=== PATIENT | female | born 1980 | race African-American/Black ===

== ENCOUNTER 2016-12-08 07:56 | Emergency (ER) | payer SELFPAY ==
[~2016-12-08] VITALS: Ht 162.6 cm; Wt 81.6 kg
[2016-12-08 08:07] VITALS: BP 137/89
[2016-12-08] MEDS ORDERED: ACYC800T PO (08:13)
[2016-12-08] MEDS ORDERED: DOCO2CRE TP (08:13)
--- NOTE | 2016-12-08 08:13 | PHYS DOC ---
Adult General Chief Complaint Chief Complaint: OTHER COMPLAINTS HPI HPI Patient is a 36 year old female significant medical history who presents with sores on her right upper lip that began last night. Patient denies any fever. Denies any chance she is . Review of Systems Review of Systems Constitutional: Denies fever or chills [] Eyes: Denies change in visual acuity, redness, or eye pain [] HENT: Denies nasal congestion or sore throat [] Respiratory: Denies cough or shortness of breath [] Cardiovascular: No additional information not addressed in HPI [] Musculoskeletal: Denies back pain or joint pain [] Integument: Sores on the upper lip Neurologic: Denies headache, focal weakness or sensory changes [] Endocrine: Denies polyuria or polydipsia [] Allergies Allergies Allergies Coded Allergies Type Severity Reaction Last Updated Verified fluconazole Allergy Intermediate 12/08/16 Yes Physical Exam Physical Exam Constitutional: Well developed, well nourished, no acute distress, non-toxic appearance. [] HENT: Normocephalic, atraumatic, bilateral external ears normal, oropharynx moist, no oral exudates, nose normal. [] Eyes: PERRLA, EOMI, conjunctiva normal, no discharge. [] Neck: Normal range of motion, no tenderness, supple, no stridor. [] Cardiovascular:Heart rate regular rhythm, no murmur [] Lungs & Thorax: Bilateral breath sounds clear to auscultation [] Skin: Patient has a grouped cluster of fluid filled vesicles on the right upper lip consistent with herpes labialis. Back: No tenderness, no CVA tenderness. [] Extremities: No tenderness, no cyanosis, no clubbing, ROM intact, no edema. [] Neurologic: Alert and oriented X 3, normal motor function, normal sensory function, no focal deficits noted. [] Psychologic: Affect normal, judgement normal, mood normal. [] Current Patient Data Vital Signs Vital Signs Date Time Temp Pulse Resp B/P (MAP) Pulse Ox O2 Delivery O2 Flow Rate FiO2 12/08/16 08:07 98.1 76 16 96 Room Air 98.1 EKG EKG [] Radiology/Procedures Radiology/Procedures [] Course & Med Decision Making Course & Med Decision Making Pertinent Labs and Imaging studies reviewed. (See chart for details) Patient has herpes labialis. Discharged with acyclovir and Abreva. Follow-up with PCP in 1-2 weeks. Provided return precautions and discharged in stable condition. Dragon Disclaimer Dragon Disclaimer This electronic medical record was generated, in whole or in part, using a voice recognition dictation system. Departure Departure Impression: Primary Impression: Herpes labialis Disposition: 01 HOME, SELF-CARE Condition: STABLE Patient Instructions: Herpes Labialis Additional Instructions: You seen for herpes lesions on her lips. This is a viral illness. Use the prescribed medicines as ordered. Please get [id number] Abreva and use it every 2 hours for the next 5 days. Follow-up with your doctor in the next 7 days. Come back to the emergency room at any time if symptoms worsen. Scripts Acyclovir (ACYCLOVIR) 800 Mg Tablet 1 TAB PO BID, #14 TAB Prov: LAUREN ABREU APRN 12/08/16 Docosanol (ABREVA) 2 Gm Cream..g. 2 GM TP Q2HR, #1 EACH Prov: LAUREN ABREU APRN 12/08/16 LAUREN ABREU APRN December 08, 2016 08:13
== END 2016-12-08 08:20 | disposition home or self-care (01) ==
LOC: ER 07:56
DX: B00.1 Herpesviral vesicular dermatitis (principal); Z88.8 Allergy status to other drugs, medicaments and biological substances
CPT/HCPCS: 99283

== ENCOUNTER 2020-12-30 21:51 | Emergency (ER) | payer OTHER ==
[~2020-12-30] VITALS: Ht 160 cm; Wt 63.0 kg
[~2020-12-30 21:51] MED LIST: ACYC800T88 PO; DOCO2CRE7 TP
[2020-12-30 22:15] VITALS: BP 112/60
[2020-12-31] MEDS ORDERED: CIPR2.5D2 IO (00:09)
--- NOTE | 2020-12-31 00:09 | ED.ADGEN ---
Past Medical History Past Medical History: Anxiety Past Surgical History: No Surgical History Smoking Status: Never Smoker Alcohol Use: None Drug Use: None General Adult EDM: Chief Complaint: EYE PROBLEMS HPI: HPI: Patient is a 40-year-old previously healthy female who presents to the emergency room complaining of left eye irritation. Patient states that she got a tied pod liquid in her eye. She states that she tried to rinse it at home but that she has a large amount of burning. Nothing like this is ever occurred to her previously. She does not have any pain with eye movement. She denies any visual changes. Review of Systems: Review of Systems: Complete ROS is negative unless otherwise documented in HPI Allergies: Allergies: Allergies Coded Allergies Type Severity Reaction Last Updated Verified fluconazole Allergy Intermediate 12/08/16 Yes Physical Exam: PE: General: Awake, alert, NAD. Well Nourished, well hydrated. Cooperative HEENT: Atraumatic, EOMI, PERRL, airway patent, moist oral mucosa, chemosis of left eye, normal vision, no ulceration Neck: Supple, trachea midline Respiratory: CTA bilaterally, normal effort, no wheezing/crackles CV: RRR, no murmur, cap refill <2 GI: Soft, nondistended, nontender, no masses MSK: No obvious deformities Skin: Warm, dry, intact Neuro: A&O x3, speech NL, sensory and motor grossly intact, no focal deficits Psych: Normal affect, normal mood, not suicidal or homicidal Current Patient Data: Vital Signs: Vital Signs Date Time Temp Pulse Resp B/P (MAP) Pulse Ox O2 Delivery O2 Flow Rate FiO2 12/30/20 22:15 98.2 54 16 112/60 (77) 100 Room Air 98.2 EKG: EKG: [] Heart Score: C/O Chest Pain: N/A Risk Factors: Risk Factors: DM, Current or recent (<one month) smoker, HTN, HLP, family history of CAD, obesity. Risk Scores: Score 0 - 3: 2.5% MACE over next 6 weeks - Discharge Home Score 4 - 6: 20.3% MACE over next 6 weeks - Admit for Clinical Observation Score 7 - 10: 72.7% MACE over next 6 weeks - Early Invasive Strategies Radiology/Procedures: Radiology/Procedures: [] Course & Med Decision Making: Course & Med Decision Making patient is a 40-year-old female who presents to the emergency room with chemosis of the eye after getting a Tide pod liquid within her eye. Heladio lens was placed and the eye was irrigated with significant improvement in symptoms. Patient will be placed on ciprofloxacin drops and will be referred to ophthalmology. Patient's test results and vitals while in the ED were fully reviewed and discussed with the patient. Patient is stable and at this time does not need admission to the hospital. We have discussed strict return precautions and the importance of following up with their Primary Care Physician. Patient stated understanding and was given an opportunity to ask any questions. Patient is in agreement with plan. Dragon Disclaimer: Dragon Disclaimer: This electronic medical record was generated, in whole or in part, using a voice recognition dictation system. Departure Departure Impression: Primary Impression: Chemosis of conjunctiva Additional Impression: Chemical exposure of eye Disposition: 01 HOME / SELF CARE / HOMELESS Condition: IMPROVED Referrals: ANDREW STRICKLAND MD (PCP) Patient Instructions: Conjunctivitis, Chemical Scripts Ciprofloxacin Hcl (CIPROFLOXACIN HCL) 2.5 Ml Drops 1 DROP IO QID for 7 Days, #5 ML 0 Refills Prov: KEITH MCKEON MD 12/31/20 Problem Qualifiers KEITH MCKEON MD Dec 31, 2020 00:09
== END 2020-12-31 00:14 | disposition home or self-care (01) ==
LOC: ER 21:51
DX: H11.422 Conjunctival edema, left eye (principal); Z77.098 Contact with and (suspected) exposure to other hazardous, chiefly nonmedicinal, chemicals; Z88.8 Allergy status to other drugs, medicaments and biological substances
CPT/HCPCS: 99283; 99284